=== PATIENT | male | born 1985 | race African-American/Black ===

== ENCOUNTER 2022-02-20 06:48 | Emergency (ER) | payer OTHER, SELFPAY ==
--- NOTE | ~2022-02-20 | CT_ITS ---
EXAMINATION: CT abdomen pelvis wo con DATE: 02/20/2022 09:05 INDICATION: Right lower quadrant pain. Nausea and vomiting. TECHNIQUE: Computed tomography (CT) of the abdomen and pelvis was performed without intravenous contr ast. The dose-length product was 1171.48 mGy-cm. Automated exposure control and iterative reconstruct ion technique were employed. COMPARISON: No prior studies for comparison. . FINDINGS: There are groundglass opacities in the lower lobes with mosaic attenuation. No significant pleural or pericardial effusion. Heart size normal. The liver, spleen, pancreas, right kidney are unremarkable for noncontrast CT. There is subtle hypode nsity of the left kidney, too small to characterize without contrast. There is an accessory splenule. Gallbladder is present. There is bilateral adrenal thickening, likely benign. A pancreas is unremark able. Nonobstructive bowel gas pattern. Normal appendix. Colonic diverticulosis without evidence for diverticulitis. Gallbladder is present. No lymphadenopathy. No free air or free fluid. No acute osseo us abnormality. IMPRESSION: 1. No acute abdominal abnormality. 2: Groundglass opacities in the lower lobes with mosaic attenuation, nonspecific, although pneumonia not excluded. Reviewed, dictated and finalized at location A. IMPRESSION: 1. No acute abdominal abnormality. 2: Groundglass opacities in the lower lobes with mosaic attenuation, nonspecif ic, although pneumonia not excluded.
[2022-02-20 06:50] VITALS: BP 151/99; PULSE 78; RESP 18; TEMP 36.6; O2SAT 98
[2022-02-20 07:34] LABS: Basophils Absolute Auto 0.1 K/mm3 (0.0-0.1); Basophils Percent Auto 0.7 % (0.2-1.2); Eosinophils Absolute Auto 0.1 K/mm3 (0-0.3); Eosinophils Percent Auto 0.9 % (0-4.4); Hematocrit 48.2 % (42.0-52.0); Hemoglobin 16.6 g/dL (14.0-18.0); Immature Granulocyte Absolute 0.04 K/mm3 (0.00-0.031); Immature Granulocyte Percent A 0.4 % (0-0.5); Lymphocytes Absolute Auto 2.16 K/mm3 (0.9-3.2); Lymphocytes Percent Auto 23.7 % (18.3-44.2); Mean Corpuscular HGB Conc 34.4 g/dl (32-36); Mean Corpuscular Hemoglobin 31.6 pg (26-34); Mean Corpuscular Volume 91.6 fl (80-100); Mean Platelet Volume 10.7 fl (7.4-10.4); Monocytes Absolute Auto 0.8 K/mm3 (0.1-0.6); Neutrophils Percent Auto 65.3 % (45.5-73.1); Platelet Count Result 244 k/mm3 (150-375); Red Blood Count 5.26 M/mm3 (4.6-6.20); Red Cell Distribution Width 13.9 % (11.5-14.5); White Blood Count 9.1 K/mm3 (4.5-10.0)
[2022-02-20 07:39] LABS: Appearance Urine Clear (Clear); Bilirubin Urine Negative (Negative); Color Urine Yellow (Yellow); Glucose Urine UA Negative (Negative); Ketones Urine Negative (Negative); Leukocyte Esterase Ur Negative LEU/UL (Negative); Nitrate Urine Negative (Negative); Protein Urine 1+ mg/dL (Negative); Urobilinogen Urine 0.2 mg/dL (<2.0); pH Urine 5.5 (5.0-9.0)
[2022-02-20 07:40] LABS: Add Urine Microscopic? YES; Blood Urine Trace-Intact (Negative)
--- NOTE | 2022-02-20 07:45 | ED.ABDPAIN ---
HPI - Abdominal Pain General Chief Complaint: Abdominal Pain Stated Complaint: Toothache, abd pain Time Seen by Provider: 02/20/22 07:04 Source: patient and RN notes reviewed Mode of arrival: ambulatory Limitations: no limitations History of Present Illness HPI narrative: This is a 36 year old male with history of hypertension who presents for evaluation of right upper tooth ache. Patient developed right upper tooth pain 2 weeks ago. He was evaluated at outside ER and he was prescribed Penicillin. He states he has been taking antibiotics for a week but his symptoms have worsened. He is complaining of right upper gum swelling over the past few days . He states he is not feeling well , and he is sweating. He denies fever, chills. He states he had episode of nausea and vomiting on Monday. Patient also reports having intermittent suprapubic abdominal pain for few months. This pain may last up to 10 minutes before it spontaneously resolves. He reports having 4 bowel movements a day and he reports having BM today. He states he had pain prior to coming to ER but he does not have the pain now. He denies dysuria, hematuria or urinary hesitancy. This pain seems to occur when he needs to have bowel movement. Related Data Home Medications Medication Instructions Recorded Confirmed hydrochlorothiazide 50 mg tablet tablet 02/20/22 02/20/22 naproxen 500 mg tablet tablet 02/20/22 penicillin V potassium 500 mg tablet 02/20/22 tablet Allergies Allergy/AdvReac Type Severity Reaction Status Date / Time No Known Allergies Allergy Verified 02/20/22 06:49 Review of Systems Review of Systems: All systems reviewed & are unremarkable except as noted in HPI and below Constitutional: Constitutional: Denies chills, Reports fatigue and Denies fever(s) Respiratory: Respiratory: Denies chest congestion Gastrointestinal: Gastrointestinal: Reports abdominal pain, Reports nausea and Reports vomiting Genitourinary: Genitourinary: Denies hematuria, Denies oliguria, Denies dysuria and Denies urinary frequency Musculoskeletal: Musculoskeletal: Denies back pain [facility] Past Medical History Medical History (Updated 02/20/22 @ 10:00 by Seema Velasquez MD) Hypertension Social History Social History (Updated 02/20/22 @ 18:23 by Seema Velasquez MD) Smoking packs per day: 1 Smoking cigarettes per day: 20.0 Smoking status: Current every day smoker Exam Const: General: no acute distress Nutritional Appearance: obese Orientation/consciousness: patient oriented x3 Limitations: no limitations HENMT: Ears: TM's normal bilaterally General nose exam: Normal external nose present Face and sinus: normal facial exam Teeth and gingiva: abnormal tooth and associated gingiva upper right third molar tender, with associated gingival edema, enamel fractured and dentin fractured Throat: posterior oropharynx normal and uvula midline Eyes: Pupils: Equal, round and reactive pupils present EOM: EOMs intact bilaterally Resp: Effort & Inspection: normal respiratory effort Auscultation: clear to auscultation bilaterally Cardio: Rate: regular rate Rhythm: regular rhythm Heart sounds: no murmurs GI: GI Palp: Yes Soft to palpation, No Tenderness to palpation present (GI), No Guarding due to palpation present (GI) and No Rigid due to palpation Auscultation: normal bowel sounds Back/Spine/Pelvis: Back: no CVA tenderness Skin: General skin exam: normal color Rashes: no rashes Wounds: no wounds Neuro: General: patient oriented x3, moves all extremities and CN's II-XI intact bilaterally Cranial nerves: Yes Nystagmus not present Speech: normal speech Extrem: General: normal to inspection Psych: Mental Status: mental status grossly normal Affect: normal affect Attitude: cooperative Course Reevaluation(s) Reevaluation #1: Patient presented with worsening right upper molar pain. No sign of drainable abscess. I D
[2022-02-20 07:47] LABS: Bacteria Urine Trace /hpf; Mucus Urine Rare /lpf; RBC Urine 0-2 /hpf (0-2)
[2022-02-20 07:48] LABS: Alanine Aminotransferase 27 U/L (6-50); Alkaline Phosphatase 82 U/L (38-126); Anion Gap 14 mmol/L (8-16); Aspartate Amino Transferase 35 U/L (17-59); Bilirubin,Total 0.9 mg/dL (0.2-1.3); Blood Urea Nitrogen 22 mg/dL (9-20); Calcium 9.7 mg/dL (8.4-10.2); Carbon Dioxide 24 mmol/L (22-30); Chloride 103 mmol/L (98-107); Estimated CRCL calculation 72 ml/min; Estimated Glomerular Filt Rate 55; Glucose 122 mg/dL (65-110); Lipase 44 U/L (23-300); Potassium 3.7 mmol/L (3.4-5.0); Sodium 141 mmol/L (137-145)
[2022-02-20] MEDS: KETOROLAC 30 MG/ML VIAL (*BKC) IV PUSH (07:55)
[2022-02-20] MEDS: CLINDAMYCIN 600 MG/D5W 50 ML 600 MG/50 ML PIGGYBACK 100 MG IVPB (07:56)
[2022-02-20] MEDS: SODIUM CHLORIDE 0.9% IV 1,000 ML 999 ML IV CONT (08:04)
--- NOTE | 2022-02-20 08:58 | PC.NURSE ---
pt at imaging at this time
--- NOTE | 2022-02-20 09:10 | PC.NURSE ---
pt back from imaging
[2022-02-20 09:21] VITALS: BP 151/81; PULSE 64; RESP 18; O2SAT 98
[2022-02-20 10:28] VITALS: BP 147/84; PULSE 76; RESP 18; O2SAT 99
[2022-02-20 10:32] LABS: SARS-CoV-2 RNA PCR Negative
== END 2022-02-20 10:30 | disposition home or self-care (01) ==
PROVIDERS: Emergency Provider General Practice
DX: K04.7 Periapical abscess without sinus (principal); N28.9 Disorder of kidney and ureter, unspecified; R10.32 Left lower quadrant pain; R10.31 Right lower quadrant pain; R91.8 Other nonspecific abnormal finding of lung field; Z20.822 Contact with and (suspected) exposure to COVID-19; I10 Essential (primary) hypertension; F17.210 Nicotine dependence, cigarettes, uncomplicated
CPT/HCPCS: 36415; 74176; 80053; 81001; 83690; 85025; 96361; 96365; 96375; 99284; C9803; J1885; J7030; U0003; U0005

== ENCOUNTER 2022-03-09 02:20 | Emergency (ER) | payer OTHER, SELFPAY ==
[2022-03-09] VITALS (7 sets, daily range): BP systolic 132–166; BP diastolic 79–96; PULSE 81–105; RESP 18; TEMP 36.6; O2SAT 96–99
--- NOTE | 2022-03-09 03:36 | ED.GENADULT ---
HPI - General Adult General Chief complaint: Headache Stated complaint: sore throat, chills, headache Time Seen by Provider: 03/09/22 03:16 History of Present Illness HPI narrative: 36-year-old male presented to the emergency department for evaluation of 3 days of sore throat subjective fever, rigors and generalized fatigue. Vaccinated against COVID. Patient denies any known COVID exposure. Patient denies any associated chest pain or shortness of breath. Related Data Home Medications Medication Instructions Recorded Confirmed hydrochlorothiazide 50 mg tablet tablet 02/20/22 02/20/22 naproxen 500 mg tablet tablet 02/20/22 penicillin V potassium 500 mg tablet 02/20/22 tablet Allergies Allergy/AdvReac Type Severity Reaction Status Date / Time No Known Allergies Allergy Verified 03/09/22 02:28 Review of Systems Review of Systems: CONSTITUTIONAL: Denies fever, chills, or sweats. EYES: Denies visual changes, redness, or discharge. ENT: Rhinorrhea nasal congestion and sore throat CARDIOVASCULAR: Denies chest pain, palpitations, or edema. RESPIRATORY: Denies cough or dyspnea. GASTROINTESTINAL: Denies abdominal pain, nausea, vomiting, or diarrhea. GENITOURINARY: Denies dysuria or hematuria. SKIN: Denies rash or itching. MUSCULOSKELETAL: Denies back pain, joint pain, or myalgia. NEUROLOGIC: Headache but denies any numbness or weakness. PSYCHIATRIC: Denies anxiety or depression. [facility] Past Medical History Medical History (Updated 03/10/22 @ 00:00 by Rachelle Lutz) Hypertension Social History Social History (Updated 02/20/22 @ 18:23 by Seema Velasquez MD) Smoking packs per day: 1 Smoking cigarettes per day: 20.0 Smoking status: Current every day smoker Exam Narrative: APPEARANCE: Well appearing, no pain, no distress, well-nourished. HEAD: normocephalic, atraumatic. EYES: PERRLA/EOMI, conjunctivae clear. NOSE: Normal no drainage EARS:TMS clear with good light reflex. THROAT: Mild pharynx erythema, no tonsillar exudate NECK: Supple. No adenopathy, no masses. RESPIRATORY: Airway patent, respirations nonlabored. Clear to auscultation bilaterally, no rales, rhonchi, wheezing. CARDIOVASCULAR: Regular rate and rhythm without murmurs rubs or gallops. ABDOMINAL: Soft, nontender, nondistended, normal bowel sounds MUSCULOSKELETAL: Moves all extremities. Strength/ROM intact, No edema, No calf tenderness. NEURO: Alert. Cranial nerves II through XII intact. Grossly intact SKIN: Warm, dry. Normal Color Course Course Emergency Course: Rapid strep not available. Patient is being treated with antibiotics for a suspected pharyngitis. Patient was courage of close follow-up with his primary care physician. Patient did feel improved with treatment in the emergency department. All questions and concerns were addressed. Vital Signs Vital signs: Vital Signs Temperature 98 F 03/09/22 02:22 Pulse Rate 105 H 03/09/22 02:22 Respiratory Rate 18 03/09/22 02:22 Blood Pressure 166/91 H 03/09/22 02:22 Pulse Oximetry 96 03/09/22 02:22 Oxygen Delivery Room Air 03/09/22 02:22 Temperature 98 F 03/09/22 02:22 Pulse Rate 81 03/09/22 05:50 Respiratory Rate 18 03/09/22 05:50 Blood Pressure 132/79 03/09/22 05:50 Pulse Oximetry 99 03/09/22 05:50 Oxygen Delivery Room Air 03/09/22 02:22 Medical Decision Making Vital Signs Vital Signs: Vital Signs Temperature 98 F 03/09/22 02:22 Pulse Rate 105 H 03/09/22 02:22 Respiratory Rate 18 03/09/22 02:22 Blood Pressure 166/91 H 03/09/22 02:22 Pulse Oximetry 96 03/09/22 02:22 Oxygen Delivery Room Air 03/09/22 02:22 Temperature 98 F 03/09/22 02:22 Pulse Rate 81 03/09/22 05:50 Respiratory Rate 18 03/09/22 05:50 Blood Pressure 132/79 03/09/22 05:50 Pulse Oximetry 99 03/09/22 05:50 Oxygen Delivery Room Air 03/09/22 02:22 Lab Data Result diagrams: 03/09/22 03:54 03/09/22 0
[2022-03-09] MEDS: SODIUM CHLORIDE 0.9% IV 1,000 ML 999 ML IV CONT (03:51)
[2022-03-09] MEDS: KETOROLAC 15 MG/ML VIAL (*BKC) IV PUSH (03:53)
[2022-03-09 04:02] LABS: Basophils Absolute Auto 0.1 K/mm3 (0.0-0.1); Basophils Percent Auto 0.5 % (0.2-1.2); Eosinophils Absolute Auto 0.1 K/mm3 (0-0.3); Eosinophils Percent Auto 0.7 % (0-4.4); Hematocrit 46.7 % (42.0-52.0); Hemoglobin 15.6 g/dL (14.0-18.0); Immature Granulocyte Absolute 0.03 K/mm3 (0.00-0.031); Immature Granulocyte Percent A 0.3 % (0-0.5); Lymphocytes Absolute Auto 1.82 K/mm3 (0.9-3.2); Lymphocytes Percent Auto 19.1 % (18.3-44.2); Mean Corpuscular HGB Conc 33.4 g/dl (32-36); Mean Corpuscular Hemoglobin 30.8 pg (26-34); Mean Corpuscular Volume 92.3 fl (80-100); Monocytes Absolute Auto 0.9 K/mm3 (0.1-0.6); Monocytes Percent Auto 9.9 % (2.6-8.5); Neutrophils Absolute Auto 6.6 K/mm3 (1.3-6.7); Neutrophils Percent Auto 69.5 % (45.5-73.1); Platelet Count Result 232 k/mm3 (150-375); Red Blood Count 5.06 M/mm3 (4.6-6.20); Red Cell Distribution Width 14.3 % (11.5-14.5); White Blood Count 9.5 K/mm3 (4.5-10.0)
[2022-03-09 04:13] LABS: Alanine Aminotransferase 28 U/L (6-50); Albumin Level 4.7 g/dL (3.5-5.1); Alkaline Phosphatase 83 U/L (38-126); Anion Gap 5 mmol/L (8-16); Aspartate Amino Transferase 30 U/L (17-59); Bilirubin,Total 0.4 mg/dL (0.2-1.3); Blood Urea Nitrogen 16 mg/dL (9-20); Calcium 9.3 mg/dL (8.4-10.2); Carbon Dioxide 28 mmol/L (22-30); Chloride 102 mmol/L (98-107); Estimated CRCL calculation 82 ml/min; Estimated Glomerular Filt Rate > 60; Glucose 125 mg/dL (65-110); Potassium 3.3 mmol/L (3.4-5.0); Sodium 135 mmol/L (137-145)
[2022-03-09 04:38] LABS: SARS-CoV-2 RNA PCR Negative
[2022-03-09] MEDS: POTASSIUM CHLORIDE 20 MEQ PACKET (FOR LIQUID) 40 MEQ PO (04:51)
[2022-03-09] MEDS: AMOXICILLIN/CLAVULANATE K 875-125 MG TAB 1 TABLET PO (05:45)
== END 2022-03-09 05:50 | disposition home or self-care (01) ==
PROVIDERS: Emergency Provider Emergency Medicine
DX: J02.9 Acute pharyngitis, unspecified (principal); I10 Essential (primary) hypertension
CPT/HCPCS: 36415; 80053; 85025; 87081; 96361; 96365; 96375; 99284; A9270; C9803; J0131; J1885; J7030; U0003; U0005

== ENCOUNTER 2022-06-30 05:38 | Emergency (ER) | payer OTHER, SELFPAY ==
--- NOTE | ~2022-06-30 | XR_ITS ---
EXAMINATION: XR chest 2V DATE: 06/30/2022 06:25 INDICATION: Midsternal chest pain TECHNIQUE: PA and lateral views of the chest were obtained. COMPARISON: None FINDINGS: The lungs are clear with no focal airspace opacities, pulmonary edema, pleural effusion or pneumothor ax. The cardiomediastinal silhouette is normal. Moderate thoracic spondylosis. IMPRESSION: 1. No acute cardiopulmonary disease. Reviewed, dictated and finalized at location A.
[2022-06-30 05:42] VITALS: BP 153/106; PULSE 80; RESP 14; TEMP 36.6; O2SAT 99
--- NOTE | 2022-06-30 05:46 | ECG_ITS ---
Measurements Intervals Plato Rate: 69 P: 50 AR: 160 QRS: 42 QRSD: 97 T: 7 QT: 364 QTc: 390 Interpretive Statements SINUS RHYTHM NONSPECIFIC T-WAVE ABNORMALITY ABNORMAL ECG NO PREVIOUS ECG AVAILABLE FOR COMPARISON Electronically Signed On 06-30-2022 14:54:48 CDT by Monty Braxton M.D.
--- NOTE | 2022-06-30 06:04 | ED.CHESTPAIN ---
HPI - Chest Pain General Chief Complaint: Chest Pain Stated Complaint: chest pain x 3 days Time Seen by Provider: 06/30/22 05:49 History of Present Illness HPI narrative: This is a 36-year-old male with past medical history of hypertension, presenting to the emergency department complaining of sharp substernal chest pain for the past 3 days. He states the pain appeared out of the blue . He describes it as sharp, 6 out of 10, not radiating, aggravated by cough and deep breathing, not associated with nausea or vomiting. He also complains of diffuse myalgias. Related Data Home Medications Medication Instructions Recorded Confirmed hydrochlorothiazide 50 mg tablet tablet 02/20/22 02/20/22 naproxen 500 mg tablet tablet 02/20/22 penicillin V potassium 500 mg tablet 02/20/22 tablet Allergies Allergy/AdvReac Type Severity Reaction Status Date / Time No Known Allergies Allergy Verified 06/30/22 05:38 Review of Systems Review of Systems: CONSTITUTIONAL: Denies fever, chills, or sweats. EYES: Denies visual changes, redness, or discharge. ENT: Denies rhinorrhea, congestion, sore throat, or otalgia. CARDIOVASCULAR: Chest pain , denies palpitations, or edema. RESPIRATORY: Denies cough or dyspnea. GASTROINTESTINAL: Denies abdominal pain, nausea, vomiting, or diarrhea. GENITOURINARY: Denies dysuria or hematuria. SKIN: Denies rash or itching. MUSCULOSKELETAL: Denies back pain, joint pain, or myalgia. NEUROLOGIC: Denies headache, numbness, dizziness, or weakness. PSYCHIATRIC: Denies anxiety or depression. PMFSH Past Medical History Medical History Hypertension Social History Social History Smoking packs per day: 1 Smoking cigarettes per day: 20.0 Smoking status: Current every day smoker Exam Narrative: GENERAL: Well-developed, well-nourished, and in no acute distress. HEAD: Normocephalic, atraumatic. EYES: PERRLA and EOMI. ENT: Nares clear, no rhinorrhea or epistaxis. Mucous membranes moist. Oropharynx without tonsillar hypertrophy exudate or other lesions. NECK: Supple. No adenopathy or masses. No carotid bruits or JVD CHEST: Clear to auscultation. No respiratory distress. No wheezes rales or rhonchi HEART: Tender palpation over the anterior chest wall regular rate and rhythm. No murmur heard. Normal peripheral pulses. ABDOMEN: Soft, nontender, nondistended, normal active bowel sounds. EXTREMITIES: Normal range of motion. No edema. SKIN: Warm, dry, no rash. NEURO: No focal deficits. Alert and oriented x3. PSYCH: Normal mood and affect. Course Course Emergency Course: 07:02 - Labs demonstrate a mild hypokalemia with potassium of 3.3. EKG not concerning for ischemia. Troponin negative. Patient's heart score is 2. Chest x-ray not concerning for acute cardiopulmonary process. Discussed return emergency precautions including signs/symptoms of ACS and respiratory distress. The patient voiced understanding is comfortable with plan. All questions answered to his satisfaction. Vital Signs Vital signs: Vital Signs Temperature 97.8 F 06/30/22 05:42 Pulse Rate 80 06/30/22 05:42 Respiratory Rate 14 06/30/22 05:42 Blood Pressure 153/106 H 06/30/22 05:42 Pulse Oximetry 99 06/30/22 05:42 Oxygen Delivery Room Air 06/30/22 05:42 Temperature 97.8 F 06/30/22 05:42 Pulse Rate 80 06/30/22 05:42 Respiratory Rate 14 06/30/22 05:42 Blood Pressure 153/106 H 06/30/22 05:42 Pulse Oximetry 99 06/30/22 05:42 Oxygen Delivery Room Air 06/30/22 05:42 MDM - Chest Pain MDM Narrative Medical decision making narrative: Plan: Labs, imaging, pain control, reassess Differential Diagnosis Differential diagnosis: Likely pneumothorax and other (ACS, costochondritis, pneumonia, COVID, flu, metabolic abnormality, other) Lab Data Result diagrams: 06/30/22 06:09
[2022-06-30 06:16] LABS: Basophils Absolute Auto 0.1 K/mm3 (0.0-0.1); Eosinophils Absolute Auto 0.2 K/mm3 (0-0.3); Eosinophils Percent Auto 3.1 % (0-4.4); Hematocrit 48.7 % (42.0-52.0); Hemoglobin 16.3 g/dL (14.0-18.0); Immature Granulocyte Absolute 0.05 K/mm3 (0.00-0.031); Immature Granulocyte Percent A 0.8 % (0-0.5); Lymphocytes Absolute Auto 2.33 K/mm3 (0.9-3.2); Lymphocytes Percent Auto 37.5 % (18.3-44.2); Mean Corpuscular HGB Conc 33.5 g/dl (32-36); Mean Corpuscular Hemoglobin 31.5 pg (26-34); Mean Platelet Volume 10.5 fl (7.4-10.4); Monocytes Absolute Auto 0.6 K/mm3 (0.1-0.6); Monocytes Percent Auto 10.3 % (2.6-8.5); Neutrophils Absolute Auto 2.9 K/mm3 (1.3-6.7); Neutrophils Percent Auto 47.3 % (45.5-73.1); Platelet Count Result 206 k/mm3 (150-375); Red Blood Count 5.18 M/mm3 (4.6-6.20); White Blood Count 6.2 K/mm3 (4.5-10.0)
[2022-06-30 06:27] LABS: Alanine Aminotransferase 37 U/L (6-50); Albumin Level 4.6 g/dL (3.5-5.1); Alkaline Phosphatase 70 U/L (38-126); Anion Gap 10 mmol/L (8-16); Aspartate Amino Transferase 37 U/L (17-59); Bilirubin,Total 0.4 mg/dL (0.2-1.3); Blood Urea Nitrogen 17 mg/dL (9-20); Calcium 9.1 mg/dL (8.4-10.2); Carbon Dioxide 26 mmol/L (22-30); Chloride 103 mmol/L (98-107); Estimated CRCL calculation 97 ml/min; Estimated Glomerular Filt Rate > 60; Glucose 115 mg/dL (65-110); Lipase 45 U/L (23-300); Potassium 3.3 mmol/L (3.4-5.0); Sodium 139 mmol/L (137-145)
[2022-06-30 06:28] LABS: Partial Thromboplastin Time 24.9 SECONDS (22.3-36.8); Prothrombin Time 12.5 Seconds (11.1-14.7)
[2022-06-30 06:39] LABS: Troponin I < 0.012 ng/mL (0.000-0.034)
[2022-06-30] MEDS: ACETAMINOPHEN 500 MG TABLET 1000 MG PO (06:39)
[2022-06-30] MEDS: ASPIRIN 81 MG CHEWABLE TABLET 324 MG PO (06:58)
== END 2022-06-30 07:14 | disposition home or self-care (01) ==
PROVIDERS: Emergency Provider Preventive Medicine Aerospace Medicine
DX: R07.89 Other chest pain (principal); I10 Essential (primary) hypertension; F17.210 Nicotine dependence, cigarettes, uncomplicated; R94.31 Abnormal electrocardiogram [ECG] [EKG]
CPT/HCPCS: 36415; 71046; 80053; 83690; 84484; 85025; 85610; 85730; 93005; 99284; A9270